=== PATIENT | male | born 1940 | race Caucasian/White ===

== ENCOUNTER 2016-12-29 23:36 | Emergency (ER) | payer MEDICARE, OTHER ==
[~2016-12-29] VITALS: Ht 177.8 cm; Wt 78.0 kg
[~2016-12-29 23:36] MED LIST: SIMV20TA6 PO; VENL75TA4 PO
[2016-12-30] MEDS ORDERED: ATORVASTATIN 20 MG TABLET (00:05)
[2016-12-30] MEDS ORDERED: DULO30CA2 PO (00:05)
[2016-12-30] MEDS ORDERED: HYDROMORPHONE 1 MG/1 ML DISP.SYRIN IV ONE ×2 (00:15→01:45)
[2016-12-30] MEDS ORDERED: IV NORMAL SALINE 1000 ML BAG IV ONE (00:15)
[2016-12-30] MEDS ORDERED: ONDANSETRON IV *ER 4 MG/2 ML VIAL IV ONE (00:15)
--- NOTE | 2016-12-30 00:20 | NUR ---
Pt seen by Dr. Perez. IV established. Unable to draw labs from line. Pt medicated for discomfort, will monitor for effects of medication. Fluid bolus infusing freely to gravity. Pt to CT via ayse, labs to be drawn when returns to ER
[2016-12-30] MEDS ORDERED: ONDANSETRON 4 MG/2 ML VIAL ONE (00:31)
[2016-12-30] MEDS ORDERED: HYDROMORPHONE 2 MG/1 ML DISP.SYRIN ONE ×2 (00:32→01:59)
--- NOTE | 2016-12-30 00:45 | NUR ---
Pt returned from CT, lab at bedside. Pt sts pain improved slightly. Sts pain is down to an 8/10. Pt placed on monitor and 2 L NC to maintain O2 sats > 95%.
--- NOTE | 2016-12-30 01:35 | NUR ---
Pt sts his pain is increasing. Pt requesting more pain medication. Dr. Perez notified, awaiting further orders.
[2016-12-30 01:37] LABS: BASOPHILS # (AUTO) 0.2 K/uL (0.0-8.0); BASOPHILS % (AUTO) 1.3 % (0.0-2.0); EOSINOPHILS # (AUTO) 0.1 K/uL (0.0-0.7); EOSINOPHILS % (AUTO) 0.3 % (0.0-7.0); HEMATOCRIT 48.1 % (40-50); HEMOGLOBIN 16.1 G/DL (14.0-18.0); LYMPHOCYTES # (AUTO) 0.4 K/UL (0.8-4.8); LYMPHOCYTES % (AUTO) 2.4 % (20.5-51.5); MEAN CORPUSCULAR HEMOGLOBIN 33.3 UUG (27.0-31.0); MEAN CORPUSCULAR HGB CONC 34 g/dL (32.0-37.0); MEAN CORPUSCULAR VOLUME 99.6 FL (82.0-92.0); MONOCYTES % (AUTO) 5.5 % (0.0-11.0); NEUTROPHILS % (AUTO) 90.5 % (38.5-71.5); PLATELET COUNT (AUTO) 209 K/UL (150-450); RED BLOOD CELL COUNT(AUTO) 4.83 MIL/UL (4.7-6.1); WHITE BLOOD COUNT (AUTO) 17.7 K/UL (4.0-11.2)
[2016-12-30 01:48] LABS: CARBON DIOXIDE 24 mmol/L (21-32); CHLORIDE 103 mmol/L (98-107); CREATININE 0.8 mg/dL (0.6-1.3); GLUCOSE 123 mg/dL (74-106); POTASSIUM 4.7 mmol/L (3.5-5.1); UREA NITROGEN, BLOOD 27 mg/dL (7-18)
--- NOTE | 2016-12-30 01:51 | NUR ---
Pt medicated for discomfort, will monitor for effects of medication. Pt repositioned and given hot pack in a position of comfort for self. Family remains at bedside.
[2016-12-30 01:53] LABS: ALANINE AMINOTRANSFERASE 66 U/L (16-63); ALKALINE PHOSPHATASE 98 U/L (50-136); ASPARTATE AMINOTRANSFERASE 49 U/L (15-37); BILIRUBIN,TOTAL 0.5 mg/dL (0.2-1.0); TOTAL PROTEIN, SERUM 7.9 g/dL (6.4-8.2)
--- NOTE | 2016-12-30 02:15 | NUR ---
Pt conts to be unable to provide UA at this time. Pt refuses straight cath. Dr. Perez notified.
[2016-12-30 02:25] LABS: BAND % (MANUAL) 3 % (0-10); LYMPHOCYTES % (MANUAL) 2 % (20-40); MONOCYTES % (MANUAL) 11 % (2-10); NEUTROPHILS % (MANUAL) 84 % (42-75)
--- NOTE | 2016-12-30 03:10 | NUR ---
Pt sts pain improved with medication. Pt resting in position of comfort for self.
--- NOTE | 2016-12-30 03:50 | NUR ---
Pt stable for discharge per Dr. Perez. IV dc'd, catheter intact, drsg applied. No problems noted to site. Pt and given ACI. Both verbalized understanding of dc instructions. Pt wheeled out of ER via w/c to the car, to drive home.
[2016-12-30 04:16] VITALS: BP 125/67
== END 2016-12-30 03:50 | disposition home or self-care (01) ==
LOC: ER 23:39
DX: G89.29 Other chronic pain (principal); M54.5 Low back pain; R74.0 Nonspecific elevation of levels of transaminase and lactic acid dehydrogenase [LDH]; D72.829 Elevated white blood cell count, unspecified; E78.5 Hyperlipidemia, unspecified; Z87.442 Personal history of urinary calculi; Z88.0 Allergy status to penicillin; Z85.828 Personal history of other malignant neoplasm of skin; E86.0 Dehydration; Z88.1 Allergy status to other antibiotic agents; M48.061 Spinal stenosis, lumbar region without neurogenic claudication
CPT/HCPCS: 36415; 71010; 74176; 80053; 85025; 96361; 96374; 96375; 96376; 99285; A4663; J1170 ×2; J2405; J7030